=== PATIENT | male | born 1985 | race Caucasian/White ===

== ENCOUNTER 2022-08-24 05:57 | Emergency (ER) | payer SELFPAY ==
[~2022-08-24] VITALS: Ht 170.2 cm; Wt 101.5 kg
[~2022-08-24 05:57] MED LIST: IBUP-2028 MT; TAMS-11 PO
[2022-08-24 06:08] VITALS: BP 135/97
[2022-08-24] MEDS ORDERED: ACETAMINOPHEN 325MG TABLET PO STA (07:00)
[2022-08-24] MEDS ORDERED: IBUP-2029 MT (08:31)
== END 2022-08-24 09:08 | disposition home or self-care (01) ==
LOC: ER 05:57
DX: R51.9 Headache, unspecified (principal)
CPT/HCPCS: 99284

== ENCOUNTER 2025-03-18 06:19 | Inpatient (IN) | payer SELFPAY ==
[~2025-03-18] VITALS: Ht 170.2 cm; Wt 98.0 kg
[~2025-03-18 06:19] MED LIST changes: +IBUP-1455 MT; -TAMS-11 PO; +TAMS-54 PO
[2025-03-18 06:46] VITALS: O2SAT 96
[2025-03-18] MEDS: ACETAMINOPHEN 325MG TABLET PO ONE (08:08)
[2025-03-18 08:30] LABS: BASOPHILS % 0.9 % (0.0-2.0); EOSINOPHILS % 1.4 % (0.0-5.0); HEMATOCRIT. 41.4 % (42.0-52.0); HEMOGLOBIN. 13.7 g/dL (14.0-18.0); LYMPHOCYTES % 10.9 % (20.0-50.0); MEAN PLATELET VOLUME 10.6 fl (7.4-10.4); MONOCYTES % 6.2 % (2.0-8.0); NEUTROPHILS % 80.6 % (40.0-76.0); PLATELET 120 x1000/uL (130-400); RED BLOOD CELL COUNT 4.78 mill/uL (4.7-6.1); RED CELL DISTRIBUTION WIDTH 15.6 % (11.6-14.6)
[2025-03-18 08:40] LABS: CREATININE 0.8 mg/dL (0.6-1.3); UREA NITROGEN BLOOD 8 mg/dL (9-23)
[2025-03-18 08:42] LABS: ASPARTATE AMINOTRANSFERASE 13 IU/L (<34); BILIRUBIN DIRECT 0.1 mg/dL (<=3.0); BILIRUBIN TOTAL 0.5 mg/dL (0.1-1.0); PROTEIN TOTAL 7.8 g/dL (6.0-8.3)
[2025-03-18] MEDS: MORPHINE SULFATE 4 MG/ML INJ (FOR IV/IM USE) IV ONE (09:09)
[2025-03-18 11:05] LABS: CLARITY URINE CLOUDY (CLEAR); COLOR URINE DARK YELLOW (YELLOW); GLUCOSE URINE 3+ (NEGATIVE); KETONES URINE 4+ (NEGATIVE); LEUKOCYTE ESTERASE URINE NEGATIVE (NEGATIVE); NITRITE URINE NEGATIVE (NEGATIVE); OCCULT BLOOD URINE NEGATIVE (NEGATIVE); PH URINE 5.5 (4.5-8.0); PROTEIN URINE 3+ (NEGATIVE); SPECIFIC GRAVITY URINE 1.039 (1.005-1.030); UROBILINOGEN URINE 1.0 E.U./dL (0.2-1.0)
[2025-03-18 11:15] VITALS: BP 122/76; PULSE 97; RESP 19; TEMP 36.14
[2025-03-18 11:21] LABS: RBC URINE 0-2 /hpf (0-2); WBC URINE 0-2 /hpf (0-2)
[2025-03-18 11:22] LABS: BACTERIA URINE TRACE; COARSE GRANULAR CASTS URINE 0-5 /lpf; MUCUS URINE 1+ /lpf (NONE/TRACE); SQUAMOUS EPITHELIAL CELL URINE RARE /lpf (RARE/1+); YEAST URINE NONE SEEN
[2025-03-18 11:24] VITALS: BP 122/76; PULSE 103; RESP 18; TEMP 36.1; O2SAT 100
[2025-03-18] MEDS ORDERED: IPRATROPIUM/ALBUTEROL 0.5-3(2.5)MG/3ML NEB HHN PRN (12:30)
[2025-03-18] MEDS ORDERED: ACETAMINOPHEN 325MG TABLET PO PRN (12:30)
[2025-03-18] MEDS ORDERED: DEXTROSE 50% WATER 50ML SYRINGE IV PRN ×2 (12:30→14:00)
[2025-03-18] MEDS ORDERED: GUAIFENESIN 200MG/10ML SUGAR FREE UDC PO PRN (12:30)
[2025-03-18] MEDS ORDERED: ONDANSETRON HCL 4MG/2ML INJ IV PRN (12:30)
[2025-03-18] MEDS: BLOOD SUGAR DIAGNOSTIC STRIP TEST SCH ×2 (13:02→17:43)
[2025-03-18] MEDS: INSULIN LISPRO 100 UNITS/ML SUBCUT SCH ×2 (13:10→17:44)
[2025-03-18] MEDS: ENOXAPARIN 40MG/0.4ML SYR SUBCUT SCH (13:13)
[2025-03-18] MEDS: PANTOPRAZOLE SODIUM 40 MG/VIAL IV SCH (13:13)
[2025-03-18] MEDS ORDERED: KETOROLAC 15MG/ML VIAL IV PRN (13:30)
[2025-03-18] MEDS ORDERED: MORPHINE SULFATE 2 MG/ML INJ (NOT FOR IM USE) IV PRN (14:00)
[2025-03-18] MEDS ORDERED: NALOXONE HCL 0.4MG/ML VIAL IV PRN (14:15)
[2025-03-18 15:30] LABS: PHOSPHORUS 2.7 mg/dL (2.5-4.9)
[2025-03-18] MEDS: PIPERACILLIN/TAZO 3.375G/50ML 50 ML IV SCH (15:55)
[2025-03-18] MEDS: SODIUM CHLORIDE 0.9% 1,000 ML IV SCH (15:56)
[2025-03-18 16:00] VITALS: BP 124/83; PULSE 108; RESP 17; TEMP 37.2; O2SAT 96
[2025-03-18] MEDS ORDERED: CLONIDINE 0.1MG TABLET PO PRN (17:45)
[2025-03-18] MEDS: LACTATED RINGERS 1,000 ML IV SCH (17:50)
[2025-03-18] MEDS: ACETAMINOPHEN 325MG TABLET PO PRN (18:05)
[2025-03-18 20:00] VITALS: BP 130/83; PULSE 98; RESP 18; TEMP 37.2; O2SAT 97
[2025-03-18 21:42] LABS: *AMPHETAMINES SCREEN URINE NEGATIVE (NEGATIVE); *BARBITURATES SCREEN URINE NEGATIVE (NEGATIVE); *BENZODIAZEPINES SCREEN URINE NEGATIVE (NEGATIVE); *COCAINE SCREEN URINE NEGATIVE (NEGATIVE); CANNABINOID URINE SCREEN NEGATIVE (NEGATIVE); ECSTASY MDMA SCREEN URINE NEGATIVE (NEGATIVE); METHADONE URINE SCREEN NEGATIVE (NEGATIVE); OPIATES URINE SCREEN PRESUMPTIVE POSITIVE (NEGATIVE); PHENCYCLIDINE URINE SCREEN NEGATIVE (NEGATIVE)
[2025-03-18 22:18] LABS: INR 1.1
[2025-03-18 22:36] LABS: TRIGLYCERIDE 581.0 mg/dL (0-150)
[2025-03-18 22:37] LABS: LACTATE DEHYDROGENASE 175.0 IU/L (120-246); LDL CHOLESTEROL 148.0 mg/dL (5-100)
[2025-03-18 22:48] LABS: CREATININE 0.7 mg/dL (0.6-1.3); UREA NITROGEN BLOOD 7 mg/dL (9-23)
[2025-03-18 23:16] LABS: HEPATITIS A AB IGM NEGATIVE (Negative)
[2025-03-18 23:17] LABS: HEPATITIS B CORE AB IGM NEGATIVE (Negative); HEPATITIS C AB NON REACTIVE (Neg) (Negative)
[2025-03-19] VITALS (7 sets, daily range): BP systolic 128–141; BP diastolic 72–90; PULSE 95–111; RESP 18–20; TEMP 36.1–37.2; O2SAT 97–99
[2025-03-19] MEDS: GEMFIBROZIL 600MG TABLET PO SCH (08:10)
[2025-03-19] MEDS: PANTOPRAZOLE SODIUM 40 MG/VIAL IV SCH (08:45)
[2025-03-19 09:06] LABS: CREATININE 0.6 mg/dL (0.6-1.3); UREA NITROGEN BLOOD 6 mg/dL (9-23)
[2025-03-19 09:13] LABS: PLATELET 133 x1000/uL (130-400); RED BLOOD CELL COUNT 4.43 mill/uL (4.7-6.1); RED CELL DISTRIBUTION WIDTH 15.3 % (11.6-14.6)
[2025-03-19] MEDS: INSULIN LISPRO 100 UNITS/ML SUBCUT SCH (17:40)
[2025-03-19] MEDS: INSULIN GLARGINE 100 UNITS/ML SUBCUT SCH (22:10)
[2025-03-20] VITALS: BP 119/79; PULSE 94; RESP 20; TEMP 37.1; O2SAT 97
[2025-03-20 04:00] VITALS: BP 132/89; PULSE 99; RESP 20; TEMP 36.9; O2SAT 98
[2025-03-20 05:05] VITALS: BP 132/89; PULSE 99; RESP 20; TEMP 36.9; O2SAT 98
[2025-03-20 08:00] VITALS: BP 131/89; PULSE 106; RESP 14; TEMP 36.2; O2SAT 97
[2025-03-20 09:06] LABS: BASOPHILS % 0.5 % (0.0-2.0); EOSINOPHILS % 3.6 % (0.0-5.0); HEMATOCRIT. 40.6 % (42.0-52.0); HEMOGLOBIN. 13.4 g/dL (14.0-18.0); LYMPHOCYTES % 15.4 % (20.0-50.0); MEAN PLATELET VOLUME 10.7 fl (7.4-10.4); MONOCYTES % 8.6 % (2.0-8.0); NEUTROPHILS % 71.9 % (40.0-76.0); PLATELET 148 x1000/uL (130-400); RED BLOOD CELL COUNT 4.75 mill/uL (4.7-6.1); RED CELL DISTRIBUTION WIDTH 15.2 % (11.6-14.6)
[2025-03-20 09:31] LABS: CREATININE 0.6 mg/dL (0.6-1.3)
[2025-03-20 09:32] LABS: UREA NITROGEN BLOOD 7 mg/dL (9-23)
[2025-03-20] MEDS: ENOXAPARIN 30MG/0.3ML SYR SUBCUT SCH (11:34)
[2025-03-20 12:00] VITALS: BP 130/86; PULSE 100; RESP 16; TEMP 36.3; O2SAT 97
[2025-03-20] MEDS ORDERED: IBUP-2028 MT (12:10)
[2025-03-20] MEDS ORDERED: METF-1149 MT (12:10)
[2025-03-20] MEDS ORDERED: GEMF600T PO (12:10)
[2025-03-20] MEDS ORDERED: FAMO-135 MT (12:10)
[2025-03-20] MEDS ORDERED: ONDA4VIA22 IV (12:10)
[2025-03-20] MEDS ORDERED: ONDA4VIA22 PO (12:24)
[2025-03-20 13:37] VITALS: BP 131/89; PULSE 106; RESP 16; TEMP 97.2
== END 2025-03-20 15:30 | disposition home or self-care (01) | DRG 720 ==
LOC: ER 06:19 → 7WST 09:18 → EDBEDREQSVC 09:20 → EDBEDREQ 09:20 → EDBEDREQTM 09:20 → 8EST 18:14 → 7WST 18:35
PROVIDERS: ADMIT Internal Medicine; ATTEND Internal Medicine
DX: A41.9 Sepsis, unspecified organism (principal); K85.90 Acute pancreatitis without necrosis or infection, unspecified; E87.20 Acidosis, unspecified; D69.6 Thrombocytopenia, unspecified; R16.2 Hepatomegaly with splenomegaly, not elsewhere classified; I10 Essential (primary) hypertension; E11.65 Type 2 diabetes mellitus with hyperglycemia; K76.0 Fatty (change of) liver, not elsewhere classified; K52.89 Other specified noninfective gastroenteritis and colitis; E87.1 Hypo-osmolality and hyponatremia; N20.0 Calculus of kidney; E78.1 Pure hyperglyceridemia; Z87.442 Personal history of urinary calculi; Z79.899 Other long term (current) drug therapy
CPT/HCPCS: 36415; 71045; 74176; 76705; 80048; 80061; 80076; 80305; 81003; 82010; 82550; 82962; 83036; 83605; 83615; 83735; 84100; 84145; 84443; 85025; 85027; 86705; 86709; 87015; 87045; 87177; 87209; 87340; 87427; 87449; 89055; 99285; A4606; J1650; J1815; J2270; J2470; J2543; J7120